=== PATIENT | male | born 1980 ===

== ENCOUNTER → 2024-05-16 | Outpatient (CLI) | payer MEDICAID, SELFPAY | END | disposition home or self-care (01) | PROVIDERS: PCP Family Medicine; Referring Provider Family Medicine; Visit Provider Surgery | DX: I87.313 Chronic venous hypertension (idiopathic) with ulcer of bilateral lower extremity (principal); L97.521 Non-pressure chronic ulcer of other part of left foot limited to breakdown of skin; L97.812 Non-pressure chronic ulcer of other part of right lower leg with fat layer exposed; L97.822 Non-pressure chronic ulcer of other part of left lower leg with fat layer exposed; S90.414A Abrasion, right lesser toe(s), initial encounter; X58.XXXA Exposure to other specified factors, initial encounter; E11.621 Type 2 diabetes mellitus with foot ulcer; Z79.84 Long term (current) use of oral hypoglycemic drugs; F17.200 Nicotine dependence, unspecified, uncomplicated; E66.9 Obesity, unspecified | CPT/HCPCS: 29580 ==

== ENCOUNTER 2024-07-13 11:48 | Emergency (ER) | payer MEDICAID, SELFPAY ==
[2024-07-13 11:55] VITALS: BP 159/90; PULSE 105; RESP 18; TEMP 37.1; O2SAT 99
[2024-07-13 11:56] VITALS: BMI 44.4
--- NOTE | 2024-07-13 12:06 | PD.EDSKIN ---
ED Skin Abcess FB-RME/HPI General Chief complaint: Wound Recheck / Suture Removal Stated complaint: CLEARANCE Time Seen by Provider: 07/13/24 11:53 Arrival date/time: 07/13/24 11:48 43-year-old male presents emergency department today in the custody of the [facility] department patient was sent here to be cleared for his chronic leg wounds Limitations: no limitations Related Data Previous Rx's ?Medication ?Instructions ?Recorded pantoprazole 40 mg tablet,delayed 40 mg PO QDAY gastritis 1 month 01/18/24 release #30 tabs furosemide 20 mg tablet 20 mg PO QAM #30 tabs 03/07/24 losartan 50 mg tablet 50 mg PO QDAY #30 tabs 03/07/24 Allergies Allergy/AdvReac Type Severity Reaction Status Date / Time coconut Allergy Severe Swelling Verified 03/04/24 19:00 of Lip/Tongue/Throat latex Allergy Severe SWELLING, Verified 03/04/24 19:00 REDNESS, RASH, HIVES aspartame Allergy Unknown Gastrointestinal Verified 03/04/24 19:00 Upset saccharin Allergy Unknown Gastrointestinal Verified 03/04/24 19:00 Upset Review of Systems Review of Systems Systems Reviewed: All systems reviewed, normal except as documented Constitutional Constitutional: Reports system reviewed and no additional complaints, except as documented, Denies fever(s) and Denies headache(s) Eyes Eyes: Reports system reviewed and no additional complaints, except as documented and Denies blurry vision ENT Ears, Nose, Mouth, and Throat: Reports system reviewed and no additional complaints, except as documented, Denies headache(s), Denies nasal congestion and Denies nasal discharge Cardiovascular Cardiovascular: Reports system reviewed and no additional complaints, except as documented, Denies chest pain and Denies dyspnea Respiratory Respiratory: Reports system reviewed and no additional complaints, except as documented, Denies chest congestion, Denies cough and Denies dyspnea Gastrointestinal Gastrointestinal: Reports system reviewed and no additional complaints, except as documented and Denies abdominal pain Integumentary/Breasts Skin/Breast: Reports system reviewed and no additional complaints, except as documented, Denies rash and Reports wounds (Chronic wounds lower extremities) Neurologic Neurologic: Reports system reviewed and no additional complaints, except as documented, Reports as per HPI and Denies headache(s) Past Medical History Past Medical History NEUROLOGIC: Negative Neurological Disorders or Seizures CARDIAC: Positive Cardiac Disorders, Congestive Heart Failure, Edema, Cellulitis, Hypertension and Varicose Veins RESPIRATORY: Positive Asthma; Negative Chronic Obstructive Pulmonary Disease (COPD) GASTROINTESTINAL: Positive Gastrointestinal Disorders, Cirrhosis, Gastrointestinal Bleed, Esophageal Varices (with bands), Ulcer, Hemorrhoids, Gastroesophageal Reflux Disease and Obesity GENITOURINARY: Positive Genitourinary Disorders and Kidney Stones; Negative Renal Disease REPRODUCTIVE: Negative Testicular Cancer MUSCULOSKELETAL: Positive Musculoskeletal Disorders and Fractures ENT: Positive Ear Infection ENDOCRINE: Positive Endocrine Disorders and Diabetes Mellitus Type 2; Negative Diabetes Mellitus Type 1 HEMATOLOGIC: Positive Blood Disorders and Anemia; Negative Sickle Cell Disease PSYCHO/SOCIAL: Positive Depression, Anxiety and Post Traumatic Stress Disorder OTHER HISTORY: Positive Hospitalization, Falls, Blood Transfusions and Chicken Pox; Negative Autoimmune Disease, Down Syndrome, Developmental Delay, Blood Transfusion Reaction, Anesthesia Reactions, MRSA, Cancer or Testicular Cancer Family History FAMILY HISTORY: Positive Family Cancer Surgical History SURGICAL: Positive Tonsillectomy and Abdominal Surgery; Negative Cardiac Surgery, Thyroidectomy or Vasectomy Social History SMOKING STATUS: Current some day smoker SECOND HAND EXPOSURE: No (pt refused at this time) SUBSTANCE USE: methamphetamine ED Exam General Limitations: Present no limitations General appearance: Present alert and in no apparent distress Head Head exam: Present atraumatic Eye Eye exam: Present normal appearance, PERRL and EOMI ENT ENT exam: Present normal exam, normal oropharynx and mucous membranes moist Neck Neck exam: Present normal inspection, full ROM and trachea midline Chest Chest inspection: Present normal inspection and symmetric chest wall rise Respiratory Respiratory exam: Present normal lung sounds bilaterally Cardiovascular Cardiovascular exam: Present regular rate, normal rhythm and normal heart sounds Abdominal Exam Abdominal exam: Present soft and normal bowel sounds Extremities Exam Extremities exam: Present full ROM, tenderness, normal capillary refill and pedal edema; Absent joint swelling or calf tenderness Back Exam Back exam: Present normal inspection and full ROM Neurological Exam Neurological exam: Present alert, oriented X3 and CN II-XII intact Psychiatric Psychiatric exam: Present normal affect and normal mood Skin Skin exam: Present warm, dry and other (Chronic wounds lower extremities swelling lower extremities chronic) Course Quality Measures none Vital Signs Vital signs: Vital Signs Temperature 98.7 F 07/13/24 11:55 Pulse Rate 105 H 07/13/24 11:55 Respiratory Rate 18 07/13/24 11:55 Blood Pressure 159/90 H 07/13/24 11:55 Pulse Oximetry (%) 99 11/20/24 11:55 Oxygen Delivery Method Room Air 11/20/24 11:55 O2 saturation 99% room air within normal limits Skin / Abscess / Foreign Body MDM Narrative MDM Narrative:: 43-year-old male presents emergency department today in the custody of the [facility] department patient was sent here to be cleared for his chronic leg wounds On exam patient appears chronically ill but not toxic Patient reports no fever nausea or vomiting Patient reports that he is antibiotics which she has been taking Patient reports that he has had follow-up closely with wound care as well as the vascular surgeon I examined the patient's extremities new dressings applied patient has no acute findings patient's findings are all chronic I did explain to patient he will have to follow-up closely with wound care as well as vascular surgeon for worsening symptoms he must return immediately Patient data External records reviewed:: [facility] previous records Clinical information provided by:: patient Social determinants that could affect healthcare access:: housing Patient has the following chronic illnesses:: See history How is presenting disease/condition affected by chronic disease/condition?: caused by Evaluation data The following diagnostics were reviewed and interpreted by me:: other (specify) (N/A) Lab and/or radiology exams considered but not ordered:: Consider not ordered Interpretation Summary: N/A Medications / Prescriptions Medications or Prescriptions considered but not ordered:: Given no meds Medication administrations:: No meds given Consultations Consultation(s) initiated? (list below): No Diagnosis Skin/Abscess Differential Diagnosis: abscess of skin or subcutaneous tissue, cellulitis and other (Chronic wounds lower extremities) Most likely diagnosis given after review of the tests above:: Chronic wounds lower extremities Admission Indicated Admission indicated?: not indicated Admission Request Was there a request for admission?: No Disposition Plan Disposition Plan: Discharge Discharge Attestation Discharge Attestation: The patient and all family members were given an opportunity to ask questions and understood the discharge instructions. Discharge instructions specifically effects, indications for sooner follow up or return to the emergency department, and the expected course of current diagnosis. Patient condition: Stable Discharge Plan Plan Patient Disposition: HOME (Self Care) Disposition Comment: Stable Prescriptions/Referrals Prescriptions/Med Rec: No Action pantoprazole 40 mg tablet,delayed release (DR/EC) 40 mg PO QDAY 30 Days Qty: 30 3RF furosemide 20 mg Tablet 20 mg PO QAM Qty: 30 0RF losartan 50 mg tablet 50 mg PO QDAY Qty: 30 0RF Referrals: Antwan Lawler MD [Primary Care Provider] - 07/14/24 Problem List Clinical Impression: Chronic wound Patient/Caregiver Discharge Instructions Additional Instructions: Please follow-up with In skilled nursing you will need close follow-up for wound care and vascular Print Language: Croatian Stand Alone Forms: Kely Award Info., Patient Portal Info Letter PA/AIRWORTHINESS SAFETY INSPECTOR Supervising Physician PA/AIRWORTHINESS SAFETY INSPECTOR Supervising Physician: Dr Campos
== END 2024-07-13 12:29 | disposition home or self-care (01) ==
PROVIDERS: Emergency Provider Emergency Medicine; PCP Family Medicine
DX: M79.89 Other specified soft tissue disorders (principal)
CPT/HCPCS: 99281